=== PATIENT | male | born 1975 | race Caucasian/White ===

== ENCOUNTER 2019-11-18 01:05 | Emergency (ER) | payer OTHER ==
[~2019-11-18] VITALS: Ht 180.3 cm; Wt 84.0 kg
[2019-11-18] MEDS ORDERED: QUET25TA PO (02:05)
[2019-11-18] MEDS ORDERED: VIST25 PO (02:06)
[2019-11-18 05:28] LABS: BASOPHILS % 0.9 % (0.0-2.0); EOSINOPHILS % 0.4 % (0.0-5.0); HEMATOCRIT. 46.8 % (42.0-52.0); HEMOGLOBIN. 15.8 g/dL (14.0-18.0); LYMPHOCYTES % 27.4 % (20.0-50.0); MEAN CORPUSCULAR HEMOGLOBIN 28.4 pg (28.0-32.0); MEAN CORPUSCULAR VOLUME 84.3 fL (80.0-94.0); MEAN PLATELET VOLUME 8.4 fl (7.4-10.4); MONOCYTES % 11.4 % (2.0-8.0); NEUTROPHILS % 59.9 % (40.0-76.0); PLATELET 283 x1000/uL (130-400); RED BLOOD CELL COUNT 5.55 mill/uL (4.7-6.1); RED CELL DISTRIBUTION WIDTH 14.5 % (11.6-14.6)
[2019-11-18 05:33] LABS: CHLORIDE 106 mEq/L (98-107)
[2019-11-18 05:37] LABS: ETHANOL BLOOD < 10 mg/dL
[2019-11-18 08:16] LABS: CLARITY URINE CLEAR (CLEAR); COLOR URINE YELLOW (YELLOW); KETONES URINE NEGATIVE (NEGATIVE); LEUKOCYTE ESTERASE URINE NEGATIVE (NEGATIVE); NITRITE URINE NEGATIVE (NEGATIVE); OCCULT BLOOD URINE NEGATIVE (NEGATIVE); PROTEIN URINE NEGATIVE (NEGATIVE); SPECIFIC GRAVITY URINE 1.021 (1.005-1.030); UROBILINOGEN URINE 0.2 E.U./dL (0.2-1.0)
[2019-11-18 08:31] LABS: *AMPHETAMINES SCREEN URINE NEGATIVE (NEGATIVE); *BARBITURATES SCREEN URINE NEGATIVE (NEGATIVE); *BENZODIAZEPINES SCREEN URINE NEGATIVE (NEGATIVE); *COCAINE SCREEN URINE NEGATIVE (NEGATIVE); METHADONE URINE SCREEN NEGATIVE (NEGATIVE); OPIATES URINE SCREEN NEGATIVE (NEGATIVE)
[2019-11-18 08:32] LABS: CANNABINOID URINE SCREEN PRESUMTIVE POSITIVE (NEGATIVE); PHENCYCLIDINE URINE SCREEN NEGATIVE (NEGATIVE)
[2019-11-18 13:30] VITALS: BP 120/76
== END 2019-11-18 14:57 | disposition home or self-care (01) ==
LOC: ER 01:05
DX: R45.851 Suicidal ideations (principal); Z59.0 Homelessness; F12.10 Cannabis abuse, uncomplicated; F11.10 Opioid abuse, uncomplicated; F31.9 Bipolar disorder, unspecified; F20.9 Schizophrenia, unspecified; Z88.8 Allergy status to other drugs, medicaments and biological substances
CPT/HCPCS: 36415; 80053; 80305; 80307; 80320; 80329; 81003; 85025; 99283; G0480

== ENCOUNTER 2020-03-23 10:44 | Emergency (ER) | payer OTHER ==
[~2020-03-23] VITALS: Ht 172.7 cm; Wt 60.0 kg
[~2020-03-23 10:44] MED LIST: QUET25TA PO; VIST25 PO
[2020-03-23] MEDS ORDERED: LIDOCAINE 1%/EPI 1:100,000 10 ML VIAL IJ ONE (12:00)
[2020-03-23] MEDS ORDERED: BACITRACIN ZINC OINT UDPKT TOP ONE (12:00)
[2020-03-23 12:35] LABS: BASOPHILS % 0.8 % (0.0-2.0); HEMATOCRIT. 45.3 % (42.0-52.0); HEMOGLOBIN. 15.5 g/dL (14.0-18.0); MEAN CORPUSCULAR VOLUME 84.6 fL (80.0-94.0); MONOCYTES % 8.2 % (2.0-8.0); RED BLOOD CELL COUNT 5.35 mill/uL (4.7-6.1); RED CELL DISTRIBUTION WIDTH 14.7 % (11.6-14.6)
[2020-03-23 12:40] LABS: CHLORIDE 109 mEq/L (98-107)
[2020-03-23 12:44] LABS: ETHANOL BLOOD < 10 mg/dL
[2020-03-23] MEDS ORDERED: LIDOCAINE HCL/EPINEPHRINE 1%-EPI 1:100,000 20 ML VIAL INFIL NR (13:00)
[2020-03-23 13:05] LABS: PLATELET 254 x1000/uL (130-400)
[2020-03-23] MEDS ORDERED: CALCIUM CARBONATE 1250MG TABLET (500MG ELEMENTAL CALCIUM) PO ONE (13:15)
[2020-03-23 14:29] LABS: CHLORIDE 109 mEq/L (98-107)
[2020-03-23 15:46] LABS: CLARITY URINE CLEAR (CLEAR); COLOR URINE YELLOW (YELLOW); KETONES URINE 1+ (NEGATIVE); LEUKOCYTE ESTERASE URINE NEGATIVE (NEGATIVE); NITRITE URINE NEGATIVE (NEGATIVE); OCCULT BLOOD URINE NEGATIVE (NEGATIVE); PH URINE 5.5 (4.5-8.0); PROTEIN URINE 1+ (NEGATIVE); SPECIFIC GRAVITY URINE 1.029 (1.005-1.030); UROBILINOGEN URINE 0.2 E.U./dL (0.2-1.0)
[2020-03-23 16:04] LABS: OPIATES URINE SCREEN NEGATIVE (NEGATIVE)
[2020-03-23 16:05] LABS: *AMPHETAMINES SCREEN URINE PRESUMTIVE POSITIVE (NEGATIVE); *BARBITURATES SCREEN URINE NEGATIVE (NEGATIVE); *BENZODIAZEPINES SCREEN URINE NEGATIVE (NEGATIVE); *COCAINE SCREEN URINE NEGATIVE (NEGATIVE); CANNABINOID URINE SCREEN PRESUMTIVE POSITIVE (NEGATIVE); PHENCYCLIDINE URINE SCREEN NEGATIVE (NEGATIVE)
[2020-03-23 16:06] LABS: METHADONE URINE SCREEN NEGATIVE (NEGATIVE)
[2020-03-24 04:34] VITALS: BP 107/67
== END 2020-03-24 04:44 ==
LOC: ER 10:44
DX: S51.812A Laceration without foreign body of left forearm, initial encounter (principal); W26.8XXA Contact with other sharp object(s), not elsewhere classified, initial encounter; Y93.89 Activity, other specified; Y92.89 Other specified places as the place of occurrence of the external cause; R03.0 Elevated blood-pressure reading, without diagnosis of hypertension; F20.9 Schizophrenia, unspecified; F11.10 Opioid abuse, uncomplicated
CPT/HCPCS: 12002; 36415; 80048; 80053; 80305; 80320; 81003; 82330; 85025; 99285; J3490; G0480

== ENCOUNTER 2020-07-02 12:52 | Emergency (ER) | payer OTHER ==
[~2020-07-02] VITALS: Ht 180.3 cm; Wt 84.0 kg
[2020-07-02 13:07] VITALS: BP 115/79
== END 2020-07-02 14:10 | disposition home or self-care (01) ==
LOC: ER 12:52
DX: K64.8 Other hemorrhoids (principal); F31.9 Bipolar disorder, unspecified; F20.9 Schizophrenia, unspecified; F12.10 Cannabis abuse, uncomplicated; F11.10 Opioid abuse, uncomplicated; Z88.8 Allergy status to other drugs, medicaments and biological substances
CPT/HCPCS: 99283